=== PATIENT | female | born 1995 | race Caucasian/White ===

== ENCOUNTER → 2018-04-26 18:45 | Outpatient (CLI) | payer MEDICAID, SELFPAY ==
[2018-04-27 12:15] LABS: Chlamydia Trachomatis by PCR Negative (Negative); Neisserai gonorrhoeae by PCR Negative (Negative); Probe Check PASS; Sample Adequacy Control PASS; Specimen Processing Control PASS
[2018-05-04 11:32] LABS: HPV APTIMA, High Risk Positive (Negative)
[2018-05-04 12:01] LABS: HPV Reflexed? NOT INDICATED
== END ==
PROVIDERS: Referring Provider Obstetrics & Gynecology; Visit Provider Obstetrics & Gynecology
DX: Z01.419 Encounter for gynecological examination (general) (routine) without abnormal findings (principal); Z11.3 Encounter for screening for infections with a predominantly sexual mode of transmission
CPT/HCPCS: 87491; 87591; 88175; G0145